=== PATIENT | female | born 1985 | race Caucasian/White ===

== ENCOUNTER 2017-08-15 00:57 | Emergency (ER) | payer OTHER ==
[~2017-08-15] VITALS: Ht 162.6 cm; Wt 55.0 kg
[~2017-08-15 00:57] MED LIST: BACT800T5 PO; MOBI15TA PO; TRAM50 PO
[2017-08-15 01:13] VITALS: BP 126/79; PULSE 90; RESP 18; TEMP 98.7; O2SAT 100
--- NOTE | 2017-08-15 02:13 | PD ---
HPI Chief Complaint: Alcohol/Drug Intoxication Time Seen by Provider: 02:07 Travel History International Travel<30 days: No Contact w/Intl Traveler<30days: No Traveled to known affect area: No History of Present Illness HPI 31-year-old female who presents under [place] act initially by the [employer]. Prior to arrival the patient was drinking "twisted teas" a total of 3 of them in her apartment. She reports that she then exited her apartment was speaking to another woman in the complex who happened to be intoxicated. There was an argument and police were called and the patient was brought here under [place] act. The patient denies any complaints at this time. She reports that her grandparents can come and pick her up. She denies any injuries while drinking. She denies any associated drug use. She has no other complaints. [facility] Past Medical History Medical History: Denies Significant Hx ?: Not Past Surgical History Surgical History: No Previous Surgery Social History Alcohol Use: Yes (OCCAS) Tobacco Use: Yes (1PPD) Substance Use: No Allergies-Medications (Allergen,Severity, Reaction): Coded Allergies: No Known Allergies (Unverified Adverse Reaction, Unknown, 08/15/17) Reported Meds & Prescriptions Reported Meds & Active Scripts Active No Active Prescriptions or Reported Medications Review of Systems Except as stated in HPI: all other systems reviewed are Neg Physical Exam Narrative GENERAL: Well-developed well-nourished female no acute distress SKIN: Warm and dry. HEAD: Atraumatic. Normocephalic. EYES: Pupils equal and round. No scleral icterus. No injection or drainage. ENT: No nasal bleeding or discharge. Mucous membranes pink and moist. NECK: Trachea midline. No JVD. CARDIOVASCULAR: Regular rate and rhythm. No murmur appreciated. RESPIRATORY: No accessory muscle use. Clear to auscultation. Breath sounds equal bilaterally. MUSCULOSKELETAL: No obvious deformities. No clubbing. No cyanosis. No edema. NEUROLOGICAL: Awake and alert. No obvious cranial nerve deficits. Motor grossly within normal limits. Normal speech. Normal gait with no ataxia. Data Data Last Documented VS Vital Signs Date Time Temp Pulse Resp B/P (MAP) Pulse Ox O2 Delivery O2 Flow Rate FiO2 08/15/17 01:13 98.7 90 18 126/79 (95) 100 MDM Medical Decision Making Medical Screen Exam Complete: Yes Emergency Medical Condition: Yes Medical Record Reviewed: Yes Differential Diagnosis Alcohol consumption, adjustment reaction, polysubstance abuse Narrative Course The patient appears completely sober on this examination. Her grandparents are coming to pick her up and she will be discharged when they arrive. Diagnosis Primary Impression: Alcohol consumption of more than two drinks per day Med/Other Pt SpecificInfo: No Change to Meds Scripts No Active Prescriptions or Reported Meds Disposition: 01 DISCHARGE HOME Condition: Stable Solomon Mcdaniel Aug 15, 2017 02:13
== END 2017-08-15 02:32 | disposition home or self-care (01) ==
LOC: NEPD 00:57
DX: Z72.89 Other problems related to lifestyle (principal)
CPT/HCPCS: 99281

== ENCOUNTER 2017-08-31 18:01 | Emergency (ER) | payer SELFPAY ==
[2017-08-31 18:30] VITALS: BP 132/73; PULSE 100; RESP 20; TEMP 98.8; O2SAT 100
[2017-08-31 19:20] LABS: AUTOMATED NEUTROPHIL # 6.4 TH/MM3 (1.8-7.7); BASOPHIL % 0.5 % (0.0-2.0); EOSINOPHIL # 0.1 TH/MM3 (0-0.4); HEMATOCRIT 39.7 % (35.0-46.0); HEMOGLOBIN 13.4 GM/DL (11.6-15.3); LYMPH % 25.3 % (9.0-44.0); LYMPHOCYTE # 2.4 TH/MM3 (1.0-4.8); MEAN CELL VOLUME 90.6 FL (80.0-100.0); MEAN CORPUSCULAR HEMOGLOBIN 30.7 PG (27.0-34.0); MEAN CORPUSCULAR HGB CONC 33.8 % (32.0-36.0); MEAN PLATELET VOLUME 8.3 FL (7.0-11.0); MONO % 6.8 % (0.0-8.0); MONOCYTE # 0.6 TH/MM3 (0-0.9); NEUT % 66.4 % (16.0-70.0); PLATELET COUNT 313 TH/MM3 (150-450); RED BLOOD COUNT 4.38 MIL/MM3 (4.00-5.30); RED CELL DISTRIBUTION WIDTH 13.2 % (11.6-17.2); WHITE BLOOD COUNT 9.6 TH/MM3 (4.0-11.0)
--- NOTE | 2017-08-31 19:23 | PD ---
HPI Chief Complaint: Skin Problem Time Seen by Provider: 19:09 Travel History International Travel<30 days: No Contact w/Intl Traveler<30days: No Traveled to known affect area: No History of Present Illness HPI pt reports being bitten by her cat indoor cat 4 days ago now burning like pain and purple color and swelling getting worse ...Pt is not taking any antibiotics nor topical ointment bacterial , pt has right lateral thigh posterior aspect 7 cm bite with purple discoloration and tenderness and scratches on her lower tibia area as well. Pt denies fever no N/V/d . The cat is owned by her and rabies risk is minimal to none . PFSH Past Medical History Medical History: Denies Significant Hx Tetanus Vaccination: Unknown Influenza Vaccination: No ?: Not LMP: currently Past Surgical History Surgical History: No Previous Surgery Social History Alcohol Use: Yes (OCCAS) Tobacco Use: Yes (1PPD) Substance Use: No Allergies-Medications (Allergen,Severity, Reaction): Coded Allergies: No Known Allergies (Unverified Adverse Reaction, Unknown, 08/15/17) Reported Meds & Prescriptions Reported Meds & Active Scripts Active Ibuprofen 600 Mg Tab 600 Mg PO Q6H PRN Augmentin (Amoxicillin-Clavulanate) 875-125 Mg Tab 1 Tab PO BID Review of Systems Except as stated in HPI: all other systems reviewed are Neg Physical Exam Narrative GENERAL: non toxic no fever SKIN: Warm and dry. HEAD: Atraumatic. Normocephalic. EYES: Pupils equal and round. No scleral icterus. No injection or drainage. ENT: No nasal bleeding or discharge. Mucous membranes pink and moist. NECK: Trachea midline. No JVD. CARDIOVASCULAR: Regular rate and rhythm. RESPIRATORY: No accessory muscle use. Clear to auscultation. Breath sounds equal bilaterally. GASTROINTESTINAL: Abdomen soft, non-tender, nondistended. Hepatic and splenic margins not palpable. MUSCULOSKELETAL: Extremities patient's right thigh has a bite yareli with plantar puncture wound surrounded by area of erythema as well as purple discoloration and slightly raised the entire area is about 7 cm on the lateral right thigh just above the femur condyle Data Data Last Documented VS Vital Signs Date Time Temp Pulse Resp B/P (MAP) Pulse Ox O2 Delivery O2 Flow Rate FiO2 08/31/17 18:30 98.8 100 20 132/73 (92) 100 Orders Orders Complete Blood Count With Diff (08/31/17 18:33) Basic Metabolic Panel (Bmp) (08/31/17 18:33) Blood Culture (08/31/17 19:16) Ampicillin-Sulbactam Inj (Unasyn Inj) (08/31/17 19:30) Tetanus/Diphtheria Tox Adult (Tetanus/Di (08/31/17 19:30) Ed Discharge Order (08/31/17 20:47) Labs Laboratory Tests Test 08/31/17 18:34 White Blood Count 9.6 TH/MM3 Red Blood Count 4.38 MIL/MM3 Hemoglobin 13.4 GM/DL Hematocrit 39.7 % Mean Corpuscular Volume 90.6 FL Mean Corpuscular Hemoglobin 30.7 PG Mean Corpuscular Hemoglobin Concent 33.8 % Red Cell Distribution Width 13.2 % Platelet Count 313 TH/MM3 Mean Platelet Volume 8.3 FL Neutrophils (%) (Auto) 66.4 % Lymphocytes (%) (Auto) 25.3 % Monocytes (%) (Auto) 6.8 % Eosinophils (%) (Auto) 1.0 % Basophils (%) (Auto) 0.5 % Neutrophils # (Auto) 6.4 TH/MM3 Lymphocytes # (Auto) 2.4 TH/MM3 Monocytes # (Auto) 0.6 TH/MM3 Eosinophils # (Auto) 0.1 TH/MM3 Basophils # (Auto) 0.0 TH/MM3 CBC Comment DIFF FINAL Differential Comment Blood Urea Nitrogen 10 MG/DL Creatinine 0.94 MG/DL Random Glucose 115 MG/DL Calcium Level 9.0 MG/DL Sodium Level 138 MEQ/L Potassium Level 3.1 MEQ/L Chloride Level 102 MEQ/L Carbon Dioxide Level 27.4 MEQ/L Anion Gap 9 MEQ/L Estimat Glomerular Filtration Rate 69 ML/MIN [facility] Medical Decision Making Medical Screen Exam Complete: Yes Emergency Medical Condition: Yes Medical Record Reviewed: Yes Differential Diagnosis bite with trauma vs cellulitis vs abscess early vs hematoma , cat bite Pastrella otherr Narrative Course Unasyn to cover pasturella, and tetanus up dated and home on Augmentin and motrin and bacitracin Diagnosis Primary Impression: Cat bite of right thigh Qualified Codes: S71.151A - Open bite, right thigh, initial encounter; W55.01XA - Bitten by cat, initial encounter Scripts Ibuprofen (Ibuprofen) 600 Mg Tab 600 MG PO Q6H Y for Pain/Inflammation, #40 TAB 0 Refills Prov: Shekhar Vergara MD 08/31/17 Amoxicillin-Clavulanate (Augmentin) 875-125 Mg Tab 1 TAB PO BID for Infection, #20 TAB 0 Refills Prov: Shekhar Vergara MD 08/31/17 Shekhar Vergara MD Aug 31, 2017 19:23
[2017-08-31] MEDS ORDERED: AMPICILLIN-SULBACTAM INJ 3 GM in SODIUM CHLORIDE 0.9% INJ 100 ML IV ONE (19:30)
[2017-08-31] MEDS ORDERED: TETANUS/DIPHTHERIA TOXOID ADULT 0.5 ML VIAL IM ONE (19:30)
[2017-08-31 19:34] LABS: BICARBONATE 27.4 MEQ/L (21.0-32.0); CREATININE 0.94 MG/DL (0.50-1.00)
[2017-08-31] MEDS ORDERED: IBUP-232 PO (20:39)
[2017-08-31] MEDS ORDERED: AUGM875T3 PO (20:39)
== END 2017-08-31 21:06 | disposition home or self-care (01) ==
LOC: NEPE 18:01
DX: S71.151A Open bite, right thigh, initial encounter (principal); W55.01XA Bitten by cat, initial encounter; F17.200 Nicotine dependence, unspecified, uncomplicated; Z23 Encounter for immunization
CPT/HCPCS: 80048; 85025; 87040; 90471; 90714; 96365; 99284; J0295

== ENCOUNTER 2017-09-04 15:58 | Emergency (ER) | payer SELFPAY ==
[~2017-09-04] VITALS: Ht 160 cm; Wt 51.4 kg
[~2017-09-04 15:58] MED LIST changes: +AUGM875T3 PO; -BACT800T5 PO; +IBUP-232 PO; -MOBI15TA PO; -TRAM50 PO
[2017-09-04 16:45] VITALS: BP 127/59; PULSE 84; RESP 18; TEMP 97.7; O2SAT 100
--- NOTE | 2017-09-04 21:55 | PD ---
Physical Exam Date Seen by Provider: Sep 04, 2017 Time Seen by Provider: 21:16 Narrative 31-year-old female presents to the emergency department for vague, multiple complaints. She states she was bitten by a cat a week ago. She states that since being on antibiotics, she has been more tired and fatigued. She also states that she could be infected with an STD, but is unsure. Patient denies any pain at this time. Mild severity. Data Data Last Documented VS Vital Signs Date Time Temp Pulse Resp B/P (MAP) Pulse Ox O2 Delivery O2 Flow Rate FiO2 09/04/17 16:45 97.7 84 18 127/59 (81) 100 Orders Orders Ed Urine Pregnancytest Poc (09/04/17 16:48) Urinalysis - C+S If Indicated (09/04/17 16:48) Gc And Chlamydia Pcr (09/04/17 16:48) MDM Supervised Visit with OSMANI: No Narrative Course 31-year-old female presents to the emergency department for evaluation of fatigue and possible STD after being bit by a cat. Patient was initially seen in triage. She left AGAINST MEDICAL ADVICE before she can be moved to medical bed Diagnosis Primary Impression: Left against medical advice Disposition: 07 AGAINST MEDICAL ADVICE Alanis Cano Sep 04, 2017 21:55
== END 2017-09-04 23:51 | disposition left against medical advice (07) ==
LOC: NED 15:58
DX: R53.83 Other fatigue (principal)
CPT/HCPCS: 99281